=== PATIENT | male | born 1960 | race Caucasian/White ===

== ENCOUNTER 2017-02-19 03:30 | Emergency (ER) | payer SELFPAY | END 2017-02-19 04:20 | disposition home or self-care (01) | LOC: D.ER 03:30 | DX: H60.92 Unspecified otitis externa, left ear (principal); F17.200 Nicotine dependence, unspecified, uncomplicated ==

== ENCOUNTER 2017-05-07 03:27 | Emergency (ER) | payer MEDICARE | END 2017-05-07 03:54 | disposition home or self-care (01) | LOC: D.ER 03:27 → EDBD 03:27 → D.ER 03:54 | DX: T16.1XXA Foreign body in right ear, initial encounter (principal); X58.XXXA Exposure to other specified factors, initial encounter; Y93.89 Activity, other specified; Y92.029 Unspecified place in mobile home as the place of occurrence of the external cause; F17.200 Nicotine dependence, unspecified, uncomplicated ==

== ENCOUNTER 2017-05-28 21:11 | Emergency (ER) | payer MEDICARE | END 2017-05-28 22:28 | disposition home or self-care (01) | LOC: D.ER 21:11 | DX: S83.92XA Sprain of unspecified site of left knee, initial encounter (principal); W01.0XXA Fall on same level from slipping, tripping and stumbling without subsequent striking against object, initial encounter; Y93.89 Activity, other specified; Y92.029 Unspecified place in mobile home as the place of occurrence of the external cause ==

== ENCOUNTER 2018-06-16 00:57 | Emergency (ER) | payer MEDICARE ==
[~2018-06-16] VITALS: Ht 157.5 cm; Wt 60.9 kg
[2018-06-16 01:05] VITALS: Ht 157.5 cm; Wt 60.9 kg
[2018-06-16] MEDS ORDERED: HALDOL5 MG (01:06)
[2018-06-16] MEDS ORDERED: DEPAKOTE500 MG (01:06)
[2018-06-16] MEDS ORDERED: AMBIEN5 MG (01:06)
[2018-06-16] MEDS ORDERED: ABILIFY2 MG (01:06)
[2018-06-16] MEDS ORDERED: FLUTICASONE PRO16 GM NASAL (01:33)
[2018-06-16] MEDS ORDERED: AUGMENTIN 875-11 TAB PO (01:33)
[2018-06-16 01:52] VITALS: BP 126/72
== END 2018-06-16 01:53 | disposition home or self-care (01) ==
LOC: D.ER 00:57
DX: H66.91 Otitis media, unspecified, right ear (principal); F17.200 Nicotine dependence, unspecified, uncomplicated; Z86.59 Personal history of other mental and behavioral disorders

== ENCOUNTER 2018-09-29 18:50 | Emergency (ER) | payer MEDICARE ==
[~2018-09-29] VITALS: Ht 157.5 cm; Wt 60.9 kg
[~2018-09-29 18:50] MED LIST: ABILIFY2 MG; AMBIEN5 MG; AUGMENTIN 875-11 TAB PO; DEPAKOTE500 MG; FLUTICASONE PRO16 GM NASAL; HALDOL5 MG
[2018-09-29 19:17] VITALS: Ht 157.5 cm; Wt 60.9 kg
[2018-09-29] MEDS ORDERED: MUPIROCIN22 GM TOPICAL (21:45)
[2018-09-29] MEDS ORDERED: CLEOCIN HCL300 MG PO (21:45)
[2018-09-29 22:10] VITALS: BP 137/103
== END 2018-09-29 22:10 | disposition home or self-care (01) ==
LOC: D.ER 18:50
DX: L03.113 Cellulitis of right upper limb (principal)

== ENCOUNTER 2019-01-21 15:34 | Emergency (ER) | payer MEDICARE ==
[~2019-01-21] VITALS: Ht 157.5 cm; Wt 54.5 kg
[~2019-01-21 15:34] MED LIST changes: +CLEOCIN HCL300 MG PO; +MUPIROCIN22 GM TOPICAL
[2019-01-21 15:38] VITALS: Ht 157.5 cm; Wt 54.5 kg
[2019-01-21] MEDS ORDERED: CLEOCIN HCL300 MG PO (17:18)
[2019-01-21] MEDS ORDERED: HYDROCODON-ACE1 EAC7 PO (17:18)
[2019-01-21 17:41] VITALS: BP 158/108
== END 2019-01-21 17:41 | disposition home or self-care (01) ==
LOC: D.ER 15:34
DX: K04.7 Periapical abscess without sinus (principal); K02.9 Dental caries, unspecified; F17.210 Nicotine dependence, cigarettes, uncomplicated

== ENCOUNTER 2019-03-04 15:50 | Emergency (ER) | payer MEDICARE ==
[~2019-03-04] VITALS: Ht 157.5 cm; Wt 57.3 kg
[~2019-03-04 15:50] MED LIST changes: +HYDROCODON-ACE1 EAC7 PO
[2019-03-04 16:17] VITALS: Ht 157.5 cm; Wt 57.3 kg
[2019-03-04] MEDS ORDERED: PENICILLIN V P500 MG PO (17:50)
[2019-03-04 18:17] VITALS: BP 103/80
== END 2019-03-04 18:14 | disposition home or self-care (01) ==
LOC: D.ER 15:50
DX: K04.7 Periapical abscess without sinus (principal); F17.210 Nicotine dependence, cigarettes, uncomplicated

== ENCOUNTER 2019-09-08 14:40 | Emergency (ER) | payer MEDICARE ==
[~2019-09-08] VITALS: Ht 157.5 cm; Wt 60.9 kg
[~2019-09-08 14:40] MED LIST changes: +PENICILLIN V P500 MG PO
[2019-09-08 14:49] VITALS: Ht 157.5 cm; Wt 60.9 kg
[2019-09-08] MEDS ORDERED: NAPROSYN500 MG PO (15:20)
[2019-09-08] MEDS ORDERED: KEFLEX500 MG PO (15:20)
[2019-09-08 16:18] VITALS: BP 136/89
== END 2019-09-08 16:11 | disposition home or self-care (01) ==
LOC: D.ER 14:40
DX: S61.012A Laceration without foreign body of left thumb without damage to nail, initial encounter (principal); W45.8XXA Other foreign body or object entering through skin, initial encounter; Y93.9 Activity, unspecified; Y92.9 Unspecified place or not applicable

== ENCOUNTER 2020-03-18 00:39 | Emergency (ER) | payer MEDICARE ==
[~2020-03-18] VITALS: Ht 157.5 cm; Wt 60.9 kg
[~2020-03-18 00:39] MED LIST changes: +KEFLEX500 MG PO; +NAPROSYN500 MG PO
[2020-03-18 00:49] VITALS: BP 154/96; Ht 157.5 cm; Wt 60.9 kg
[2020-03-18] MEDS ORDERED: FLUTICASONE PRO16 GM NASAL (01:55)
[2020-03-18] MEDS ORDERED: AUGMENTIN 875-11 TAB PO (01:55)
== END 2020-03-18 02:11 | disposition home or self-care (01) ==
LOC: D.ER 00:39
DX: J32.9 Chronic sinusitis, unspecified (principal)